=== PATIENT | female | born 1970 | race Caucasian/White ===

== ENCOUNTER 2018-03-03 07:15 | Day surgery (SDC) | END 2018-03-03 14:29 | disposition home or self-care (01) ==

== ENCOUNTER 2018-10-17 07:45 | Day surgery (SDC) | payer BC ==
[2018-10-17] VITALS (14 sets, daily range): BP systolic 142–166; BP diastolic 76–89; PULSE 70–100; RESP 16–27; Ht 147.3 cm; Wt 58.4 kg
[~2018-10-17] VITALS: Ht 147.3 cm; Wt 58.4 kg
[~2018-10-17 07:45] MED LIST: BENA40TA56 PO; CEFAZOLIN 2 GM/50 ML (PMX) 50 ML IVPB ONE; ISOSULFAN BLUE 1% 5 ML INJ SC ONE; SOD CHLORIDE 0.9% 1,000 ML IV ONE
[2018-10-17] MEDS ORDERED: SOD CHLORIDE 0.9% 1,000 ML IV SCH (08:00)
[2018-10-17] MEDS ORDERED: CEFAZOLIN 2 GM/50 ML (PMX) 50 ML IVPB ONE (08:00)
--- NOTE | 2018-10-17 10:34 | PREAC ---
Date/Time of Note Date/Time of Note DATE: 10/17/18 TIME: 10:32 Anesthesia Eval and Record Evaluation Time Pre-Procedure Interview DATE: 10/17/18 TIME: 10:32 Age 47 Sex female NPO: 8 hrs Preoperative diagnosis needloc biopsy breast Planned procedure breast biopsy needle loc Past Medical History Past Medical History: Includes Cardio: HTN Surgery & Anesthesia Issues No known issue Meds Anticoagulation: No Beta Shayy within 24 hr: No Reason Beta Shayy not given: Pt. not on B-Shayy Reported Medications Benazepril Hcl* (Benazepril Hcl*) 40 Mg Tablet, 40 MG PO QHS, #30 TAB 03/03/18 Current Medications Sodium Chloride 1,000 ml @ 75 mls/hr [id number] IV ; Start 10/17/18 at 08:00; Stop 10/17/18 at 21:19 Meds reviewed: Yes Allergies Coded Allergies: niacin (Unverified Allergy, Unknown, 10/17/18) Allergies Reviewed: Yes Labs/Studies Labs Reviewed: Reviewed by anesthesiologist test: Negative Pre-procedure Exam Last vitals Vital Signs Date Temp Pulse Resp B/P (MAP) Pulse Ox O2 O2 Flow FiO2 Time Delivery Rate 10/17/18 97.8 70 16 145/82 100 Room Air 10:10 (103) Airway: Adequate mouth opening, Adequate thyromental dist Mallampati: Mallampati II Teeth: Normal Lung: Normal Heart: Normal ASA Physical Status ASA physical status: 2 Emergency: None Planned Anesthetic General/MAC: ETT Pre-operative Attestations Prior to commencing anesthesia and surgery, the patient was re-evaluated, there was verification of: *The patient's identity *The results of appropriate recent lab work and preoperative vital signs *The above evaluation not changing prior to induction *Anesthetic plan, risk benefits, alternative and complications discussed with patient/family; questions answered; patient/family understands, accepts and wishes to proceed. JAMMIE YOUNG MD October 17, 2018 10:34
[2018-10-17] MEDS ORDERED: LIDOCAINE 1% (MPF) 30 ML INJ ONE (10:48)
[2018-10-17] MEDS ORDERED: ISOSULFAN BLUE 1% 5 ML INJ SC ONE (10:48)
[2018-10-17] MEDS ORDERED: PROPOFOL 20 ML ONE (11:10)
[2018-10-17] MEDS ORDERED: SUCCINYLCHOLINE CHLORIDE 100 MG/5 ML SYG IV ONE (11:10)
[2018-10-17] MEDS ORDERED: HYDROmorphONE 2 MG/ML SYG ONE (11:10)
[2018-10-17] MEDS ORDERED: hydrALAzine 20 MG INJ ONE (11:22)
[2018-10-17] MEDS ORDERED: ROCURONIUM 50 MG INJ ONE (12:08)
[2018-10-17] MEDS ORDERED: SUGAMMADEX SODIUM 200 MG/2 ML VIAL IV ONE (12:08)
--- NOTE | 2018-10-17 12:08 | SIPON ---
Date/Time of Note Date/Time of Note DATE: 10/17/18 TIME: 12:07 Operative Report Preoperative Diagnosis Right breast cancer need for reexcision partial mastectomy utilizing to wire bracketing technique Postoperative Diagnosis Same Operation/Procedure Performed Right reexcision partial mastectomy needle directed with 2 wire bracketing technique Surgeon see signature line educational program assistant Dr Wade Anesthesia: general Estimated blood loss: 10 - 50 ml's Transfusion Required none Specimen Right reexcision partial mastectomy specimen Grafts/Implants none Complications none STEPHEN SIMPSON MD October 17, 2018 12:08
[2018-10-17] MEDS ORDERED: HYDROCODONE/APAP (7.5/325) TAB PO PRN (12:30)
[2018-10-17] MEDS ORDERED: HYDROmorphONE 1 MG/5 ML IV SYRINGE IV ONE (12:37)
[2018-10-17] MEDS: HYDROmorphONE 1 MG/5 ML IV SYRINGE IV PRN ×2 (12:51→13:32)
[2018-10-17] MEDS ORDERED: HYDROmorphONE 1 MG/5 ML IV SYRINGE IV PRN (13:00)
[2018-10-17] MEDS ORDERED: LABETALOL HCL 20MG INJ IV PRN (13:00)
[2018-10-17] MEDS ORDERED: hydrALAzine 20 MG INJ IV PRN (13:00)
[2018-10-17] MEDS ORDERED: MEPERIDINE 25 MG INJ IV PRN (13:00)
[2018-10-17] MEDS: ONDANSETRON 4 MG INJ IV PRN ×2 (13:31→15:00)
--- NOTE | 2018-10-17 15:48 | OPR ---
DATE OF OPERATION: 10/17/2018 PREOPERATIVE DIAGNOSIS: Right breast cancer, need for reexcision right partial mastectomy. POSTOPERATIVE DIAGNOSIS: Right breast cancer, need for reexcision right partial mastectomy. PROCEDURE: Right reexcision partial mastectomy utilizing bracketing technique. ANESTHESIA: General. ANESTHESIOLOGIST: Freddie Gamboa MD SURGEON: Eron Gacria MD [employer] ARCHITECT: Neftaly Wade MD INDICATIONS FOR PROCEDURE: The patient is a 47-year-old female who was previously treated for breast cancer. She was found to have inadequate margins and reexcision was recommended. The patient conse nted and was scheduled for surgery. DESCRIPTION OF PROCEDURE: On the morning of surgery, the patient presented to [facility] where she underwent localization of the previous biopsy site using a 2-wire bracke ting technique. This was performed by attending radiologist, Dr. Alexandr Ryna. Subsequently, she was brought to the operating theater, placed under general anesthesia. The right breast was prepped and draped in usual sterile fashion. The previous surgical incisional scar was then reincised and s ubcutaneous tissue was dissected with cautery. Skin edges were then elevated with skin hooks and wid e circumferential dissection of the tissue bracketed by the [address] down to the pecto ralis major fascia. Specimen was then oriented, transected and sent for radiographic confirmation of capture. Capture was confirmed. Specimen was then sent for permanent pathologic analysis. The wou nd was irrigated. Minimal bleeding was controlled with cautery. The skin was then reapproximated wi th a deep dermal layer, 4-0 Vicryl sutures in interrupted fashion, followed by final skin approximati on with 5-0 PDS sutures in subcuticular fashion. Benzoin and Steri-Strips were then applied. The pa tient tolerated the procedure well. The estimated blood loss was approximately 30 mL. There were no complications and the patient was transported in stable condition to the recovery room where kurtis sandy dressing was applied. Dictated By: ERON GARCIA MD TL/NTS Conf#: [id number] DID#: [id number]
--- NOTE | 2018-10-19 10:24 | PAC ---
Date/Time of Note Date/Time of Note DATE: 10/19/18 TIME: 10:23 Post-Anesthesia Notes Post-Anesthesia Note Last documented vital signs Vital Signs Date Temp Pulse Resp B/P (MAP) Pulse Ox O2 O2 Flow FiO2 Time Delivery Rate 10/17/18 96.8 92 16 155/79 94 Room Air 15:29 (104) 10/17/18 8.0 12:29 Activity: WNL Respiratory function: WNL Cardiovascular function: WNL Mental status: Baseline Pain reasonably controlled: Yes Hydration appropriate: Yes Nausea/Vomiting absent: Yes JAMMIE YOUNG MD Oct 19, 2018 10:24
== END 2018-10-17 15:44 | disposition home or self-care (01) ==
LOC: SDS 07:45
PROVIDERS: ATTEND Surgery Surgical Oncology
DX: C50.811 Malignant neoplasm of overlapping sites of right female breast (principal); I10 Essential (primary) hypertension
CPT/HCPCS: 19301; J0360; J0690; J1170; J2405; Z7610; Q9968